=== PATIENT | female | born 1990 | race Caucasian/White ===

== ENCOUNTER 2016-12-09 11:48 | Emergency (ER) | payer OTHER ==
[~2016-12-09] VITALS: Ht 165.1 cm; Wt 62.6 kg
[2016-12-09 11:57] VITALS: TEMP 37.1; Ht 165.1 cm; Wt 62.6 kg
[2016-12-09] MEDS ORDERED: SODIUM CHLORIDE 0.9% 1000ML 1,000 ML IV ONE (12:09)
[2016-12-09] MEDS ORDERED: SODIUM CHLORIDE 0.9% 1000ML 1,000 ML IV STA (12:09)
--- NOTE | 2016-12-09 12:12 | EMERGENCY ROOM VISIT NOTE ---
History Report prepared by Justine: Sintia Jordan Under the Supervision of: Dr. Ha Chavez M.D. First contact with patient: 12:02 Chief Complaint: ABDOMINAL PAIN Stated Complaint: STOMACH PAIN, PAIN W/URINATION AND CONSTIPATED History of Present Illness The patient is a 26 year old female who presents to the Emergency Room with complaints of worsening lower abdominal pain that started yesterday. The patient states that she is also unable to have a bowel movement and she is unsure of when her most recent normal bowel movement was. She had a bowel movement yesterday, but she states that it was a smaller amount than normal. The patient tried to use stool softeners that she has at home, but they offered her no relief. She has experienced problems with constipation in the past and has been seen in the ED for it. She states that typically they give her a "white liquid to put in a drink" and she denies ever receiving an enema. She has never been to this hospital for these issues and she states that she just moved to the area. She adds that the abdominal pain feels similar to when she was constipated in the past. Additionally, she is experiencing "problems with urination" as well as burning with urination when she is able to go. She is also experiencing chills, nausea, and "shaking" in her arms. The patient denies fevers, chest pain, shortness of breath, vomiting, back pain, hematuria, weakness or numbness in her legs, and vaginal bleeding or discharge. She also denies any chance of . The patient's boyfriend adds that the patient tried [id number] medications for an UTI that seemed to improve her symptoms. The patient denies any recent trauma or injury, along with prior abdominal surgeries and prior pregnancies. Source of History: patient, spouse/significant other (boyfriend) Onset: yesterday Position: abdomen (lower) Timing: worsening Associated Symptoms: + chills, + nausea, + urinary symptoms ("problems urinating", burning with urination), No SOB, No back pain, No chest pain, No fevers, No numbness (in legs), No vomiting, No weakness (in legs) Note: "shaking" in her arms, no hematuria, no vaginal bleeding or discharge Review of Systems See HPI for pertinent positives & negatives. A total of 10 systems reviewed and were otherwise negative. Past Medical & Surgical Medical Problems: (1) Asthma (2) Bipolar disorder Old medical records were reviewed. Nurse's notes were reviewed and I agree with. Family History Family history was reviewed; no changes noted. Social History Smoking Status: Never Smoker Alcohol Use: occasionally Marital Status: in relationship Current/Historical Medications Scheduled Nitrofurantoin Monohyd Macro (Macrobid), 1 CAP PO BID Olanzapine (Zyprexa), 7.5 MG PO DAILY Phenazopyridine HCl (Azo Urinary Pain Relief), 2 TAB PO DIRECTED Allergies Coded Allergies: Iodinated Diagnostic Agents (Unverified Allergy, Unknown, CHEST TIGHTNESS , SHORT OF BREATH, 12/09/16) Penicillins (Verified Allergy, Unknown, hives and swollen, 12/09/16) Physical Exam Vital Signs Date Time Temp Pulse Resp B/P Pulse Ox O2 Delivery O2 Flow Rate FiO2 12/09/16 15:09 80 16 108/70 100 12/09/16 14:27 77 20 105/64 96 Room Air 12/09/16 11:57 37.1 102 18 119/81 98 Room Air Physical Exam General: Well developed well nourished mildly uncomfortable appearing young female in no acute distress, breathing comfortably on room air. Normal speech HEENT: Normal cephalic atraumatic. Pupils are equal round and reactive to light. Extraocular movements are intact. Oropharynx is pink with moist mucous membranes. No swelling of the mouth lips or tongue. Neck: Supple with a midline trachea. No meningeal signs or stiffness, no JVD or bruits. No Stridor. Chest: Clear to auscultation bilaterally. No wheezes or rhonchi. No increased work of breathing. Heart: regular rate and rhythm. Abdomen: Soft mildly tender in lower abdomen bilaterally, nondistended without rebound guarding or rigidity. Extremities: No cyanosis clubbing or edema. No calf tenderness or assymetry Spine/Back. Non tender to palpation. No CVA tenderness Skin: Good turgor without rashes. Neurologic exam: Cranial nerves two through 12 are intact. Motor and sensation are intact and symmetrical throughout. Medical Decision & Procedures ER Provider Diagnostic Interpretation: X-ray results as stated below per interpretation by me and the radiologist: CHEST AND ABDOMEN 2 VIEWS IMPRESSION: No acute cardiopulmonary process. No evidence for bowel obstruction. Moderate to large amount well-formed stool seen within the colon and rectum. Electronically signed by: Andrea Nieto M.D. 12/09/2016 1:11 PM Dictated Date/Time: 12/09/2016 1:09 PM Laboratory Results 12/09/16 12:23 Red Blood Count 5.28, Mean Corpuscular Volume 85.0, Mean Corpuscular Hemoglobin 29.0, Mean Corpuscular Hemoglobin Concent 34.1, Mean Platelet Volume 11.0, Neutrophils (%) (Auto) 72.7, Lymphocytes (%) (Auto) 18.5, Monocytes (%) (Auto) 6.8, Eosinophils (%) (Auto) 1.4, Basophils (%) (Auto) 0.4, Neutrophils # (Auto) 7.15, Lymphocytes # (Auto) 1.82, Monocytes # (Auto) 0.67, Eosinophils # (Auto) 0.14, Basophils # (Auto) 0.04 12/09/16 12:23 Test 12/09/16 12:14 12/09/16 12:23 Urine Color ORANGE Urine Appearance CLEAR (CLEAR) Urine pH (4.5-7.5) Urine Specific Rodney 1.025 (1.000-1.030) Urine Protein NEG (NEG) Urine Glucose (UA) (NEG) Urine Ketones (NEG) Urine Occult Blood (NEG) Urine Nitrite (NEG) Urine Bilirubin (NEG) Urine Urobilinogen (NEG) Urine Leukocyte Esterase (NEG) Urine RBC >30 /hpf (0-4) Urine WBC >30 /hpf (0-5) Urine Epithelial Cells >30 /lpf (0-5) Urine Bacteria 4+ (NEG) White Blood Count 9.84 K/uL (4.8-10.8) Red Blood Count 5.28 M/uL (4.2-5.4) Hemoglobin 15.3 g/dL (12.0-16.0) Hematocrit 44.9 % (37-47) Mean Corpuscular Volume 85.0 fL (80-100) Mean Corpuscular Hemoglobin 29.0 pg (25-34) Mean Corpuscular Hemoglobin Concent 34.1 g/dl (32-36) Platelet Count 224 K/uL (130-400) Mean Platelet Volume 11.0 fL (7.4-10.4) Neutrophils (%) (Auto) 72.7 % Lymphocytes (%) (Auto) 18.5 % Monocytes (%) (Auto) 6.8 % Eosinophils (%) (Auto) 1.4 % Basophils (%) (Auto) 0.4 % Neutrophils # (Auto) 7.15 K/uL (1.4-6.5) Lymphocytes # (Auto) 1.82 K/uL (1.2-3.4) Monocytes # (Auto) 0.67 K/uL (0.11-0.59) Eosinophils # (Auto) 0.14 K/uL (0-0.5) Basophils # (Auto) 0.04 K/uL (0-0.2) RDW Standard Deviation 39.1 fL (36.4-46.3) RDW Coefficient of Variation 12.6 % (11.5-14.5) Immature Granulocyte % (Auto) 0.2 % Immature Granulocyte # (Auto) 0.02 K/uL (0.00-0.02) Anion Gap 11.0 mmol/L (3-11) Est Creatinine Clear Calc Drug Dose 88.7 ml/min Estimated GFR () 106.6 Estimated GFR (Non- 92.0 BUN/Creatinine Ratio 15.6 (10-20) Calcium Level 9.1 mg/dl (8.5-10.1) Total Bilirubin 0.9 mg/dl (0.2-1) Direct Bilirubin 0.2 mg/dl (0-0.2) Aspartate Amino Transf (AST/SGOT) 13 U/L (15-37) Alanine Aminotransferase (ALT/SGPT) 18 U/L (12-78) Alkaline Phosphatase 83 U/L (45-117) Total Protein 7.7 gm/dl (6.4-8.2) Albumin 4.6 gm/dl (3.4-5.0) Lipase 93 U/L (73-393) Human Chorionic Gonadotropin, Qual NEG (NEG) Laboratory studies as stated above per my review. Medications Administered Medications (Trade) Dose Ordered Sig/Emigdio Route Start Time Stop Time Status Last Admin Dose Admin Sodium Chloride 1,000 ml @ 999 mls/hr Q1H1M STAT IV 12/09/16 12:09 12/09/16 13:09 DC 12/09/16 12:31 999 MLS/HR Sodium Chloride (Nss 1000ml) 1,000 ml @ 150 mls/hr Q6H40M ONCE IV 12/09/16 12:09 12/09/16 15:37 DC 12/09/16 12:31 150 MLS/HR Ketorolac Tromethamine (Toradol Inj) 30 mg NOW STAT IV 12/09/16 12:42 12/09/16 12:43 DC 12/09/16 12:48 30 MG Ondansetron HCl (Zofran Inj) 4 mg NOW STAT IV 12/09/16 12:42 12/09/16 12:43 DC 12/09/16 12:48 4 MG Miscellaneous (Soap Suds Enema) 1 ea ONE STAT MT 12/09/16 13:17 12/09/16 13:19 DC 12/09/16 13:17 1 EA Nitrofurantoin Macrocrystals (Macrobid Cap) 100 mg NOW STAT PO 12/09/16 14:37 12/09/16 14:39 DC 12/09/16 15:04 100 MG ED Course 1203: Past medical records reviewed. The patient was evaluated in room B3, and a complete history and physical examination were performed. 1209: Ordered Sodium Chloride 1000 ml @ 150 mls/hr IV, Sodium Chloride 1000 ml @ 999 mls/hr IV 1239: The nurse informed me that the patient is experiencing abdominal pain and nausea at this time. 1242: Ordered Zofran 4 mg IV, Toradol 30 mg IV 1244: I reassessed the patient. She is resting comfortably. 1317: Ordered Soap Suds Enema 1 ea MT 1353: I went to reassess the patient, but she was in the bathroom. 1433: Upon reevaluation, the patient is doing better. She had some relief of her symptoms with the enema. I discussed the results and treatment plan with her. She verbalized agreement of the treatment plan. The patient was discharged home. 1437: Ordered Macrobid Cap 100 mg PO Medical Decision Differentials include, but are not limited to; constipation, bowel obstruction, UTI, , infection, electrolyte or metabolic abnormality. This patient comes in as described above. She has lower abdominal pain and constipation. She's had a long history of this. She's never been this hospital before. I did attempt to review old records here but there are none. IV access established and she was was hydrated IV normal saline. She's had some urinary symptoms as well. She's no back pain or numbness in her legs or buttocks or anything to suggest cauda equina syndrome. Urinalysis was obtained blood work was obtained including test, acute abdominal series was obtained as well. She was reassessed frequently. She did receive IV Toradol and IV Zofran and seemed more comfortable. I did a soapsuds enema and she has small amount of stool and desires to go home. She has no acute electrolyte or metabolic abnormalities. Clinically, she does not appear to have pyelonephritis. She likely has a UTI based on her urinalysis and she was given Macrobid here and a prescription for Macrobid twice a day for 7 days. She should rest and drink plenty fluids use a stool softener MiraLAX if needed for constipation return if: Worsening of symptoms, fever or chills, any new problems concerns. She was happy with the plan and discharged to home. Impression Primary Impression: UTI (urinary tract infection) Additional Impression: Constipation Scribe Attestation The scribe's documentation has been prepared under my direction and personally reviewed by me in its entirety. I confirm that the note above accurately reflects all work, treatment, procedures, and medical decision making performed by me. Departure Information Dispostion Home / Self-Care Prescriptions Nitrofurantoin Monohyd Macro (MACROBID) 100 Mg Cap 1 CAP PO BID for 7 Days, #14 CAP Prov: Ha Chavez M.D. 12/09/16 Referrals No Doctor, Assigned (PCP) Forms HOME CARE DOCUMENTATION FORM, IMPORTANT VISIT INFORMATION, My [facility] Patient Instructions A Signature Page Additional Instructions Rest. Drink plenty of fluids. May use MiraLAX or other stool softener if needed Use Macrobid twice a day for UTI for 7 days Return if: Increasing pain, worsening of symptoms, fever or chills, any new problems or concerns. Follow-up with your doctor in 1-2 days for recheck
[2016-12-09] MEDS ORDERED: PHEN95TA10 PO (12:29)
[2016-12-09] MEDS ORDERED: ZYP/75 PO (12:29)
[2016-12-09 12:36] LABS: BASO % 0.4 %; BASO ABS # 0.04 K/uL (0-0.2); COMPLETE YES; EOS % 1.4 %; HEMATOCRIT 44.9 % (37-47); IG% 0.2 %; LYMPH % 18.5 %; LYMPH ABS # 1.82 K/uL (1.2-3.4); MEAN CORPUSCULAR HGB CONC 34.1 g/dl (32-36); MONO % 6.8 %; NEUT % 72.7 %; PLATELET COUNT 224 K/uL (130-400); RED BLOOD COUNT 5.28 M/uL (4.2-5.4); WHITE BLOOD COUNT 9.84 K/uL (4.8-10.8)
[2016-12-09] MEDS ORDERED: KETOROLAC TROMETHAMINE 30 MG/ML VIAL IV STA (12:42)
[2016-12-09] MEDS ORDERED: ONDANSETRON INJ 2 MG/ML 2 ML VIAL IV STA (12:42)
[2016-12-09 12:49] LABS: BUN/CREATININE RATIO 15.6 (10-20); CALCIUM 9.1 mg/dl (8.5-10.1); CREATININE 0.88 mg/dl (0.60-1.20); POTASSIUM 3.6 mmol/L (3.5-5.1)
[2016-12-09 12:53] LABS: MANUAL MICROSCOPIC REQUIRED? YES; URINE APPEARANCE CLEAR (CLEAR); URINE COLOR ORANGE
[2016-12-09 12:55] LABS: REVIEW REQ? NO; SULFASALICYLIC ACID NEG (NEG)
[2016-12-09 12:56] LABS: URINE SPECIFIC GRAVITY 1.025 (1.000-1.030)
[2016-12-09 12:59] LABS: URINE BACTERIA 4+ (NEG); URINE RBC >30 /hpf (0-4); URINE WBC >30 /hpf (0-5)
--- NOTE | 2016-12-09 13:13 | DIAGNOSTIC IMAGING REPORT ---
CHEST AND ABDOMEN 2 VIEWS HISTORY: Generalized abdominal pain. COMPARISON: None. FINDINGS: The lungs are clear. The cardiomediastinal silhouette is within normal limits. There is no pneumoperitoneum or pneumatosis. The bowel gas pattern is unremarkable. No evidence for bowel obstruction. No renal or ureteral calculi. Moderate to large amount well-formed stool seen within the colon and rectum. IMPRESSION: No acute cardiopulmonary process. No evidence for bowel obstruction. Moderate to large amount well-formed stool seen within the colon and rectum. Electronically signed by: Andrea Nieto M.D. 12/09/2016 1:11 PM Dictated Date/Time: 12/09/2016 1:09 PM
[2016-12-09] MEDS ORDERED: SOAP SUDS ENEMA PR STA (13:17)
[2016-12-09 13:26] LABS: PREG INTERNAL NEGATIVE QC NEG CLEAR BACKGROUND; PREG INTERNAL POSITIVE QC POS CONTROL LINE
[2016-12-09] MEDS ORDERED: NITR1CAP16 PO (14:36)
[2016-12-09] MEDS ORDERED: NITROFURANTOIN MONOHYDRATE 100 MG CAP PO STA (14:37)
[2016-12-09 15:09] VITALS: BP 108/70; PULSE 80; O2SAT 100
== END 2016-12-09 15:10 | disposition home or self-care (01) ==
LOC: C.EDB 11:50
DX: N39.0 Urinary tract infection, site not specified (principal); K59.00 Constipation, unspecified; F31.9 Bipolar disorder, unspecified; J45.909 Unspecified asthma, uncomplicated